=== PATIENT | female | born 1990 | race Caucasian/White ===

== ENCOUNTER 2017-08-10 17:06 | Emergency (ER) | payer OTHER ==
[~2017-08-10] VITALS: Ht 162.6 cm; Wt 85.3 kg
[~2017-08-10 17:06] MED LIST: AZITHROMYCIN 2250 MG PO; FLEXERIL PO; IBUPROFEN 800800 M1 PO; LIORESAL 10 MG10 MG PO; PHENERGAN-CODE120 ML PO; PRENATAL; PRENATAL MULTI1 EAC2 PO; ULTRAM 50MG TAB50 MG PO
[2017-08-10] MEDS ORDERED: SYNTHROID150 MCG PO (17:16)
[2017-08-10] MEDS ORDERED: ZOVIRAX TOP (17:43)
[2017-08-10] MEDS ORDERED: ACYCLOVIR 400400 MG PO (17:43)
[2017-08-10 17:52] VITALS: BP 125/88
== END 2017-08-10 17:52 | disposition home or self-care (01) ==
LOC: M.ERS 17:06
DX: B00.9 Herpesviral infection, unspecified (principal); E03.9 Hypothyroidism, unspecified; F17.210 Nicotine dependence, cigarettes, uncomplicated

== ENCOUNTER 2018-06-27 08:32 | Emergency (ER) | payer OTHER ==
[~2018-06-27] VITALS: Ht 162.6 cm; Wt 83.5 kg
[~2018-06-27 08:32] MED LIST changes: +ACYCLOVIR 400400 MG PO; +SYNTHROID150 MCG PO; +ZOVIRAX TOP
[2018-06-27 10:05] LABS: ABSOLUTE BASOPHILS 0.1 thou/uL (0.0-0.2); ABSOLUTE EOSINOPHILS 0.3 thou/uL (0.0-0.7); ABSOLUTE LYMPHOCYTES 2.8 thou/uL (0.8-5.3); ABSOLUTE MONOCYTES 0.4 thou/uL (0.0-1.2); ABSOLUTE NEUTROPHILS 3.3 thou/uL (1.6-8.1); BASOPHILS 1.2 %; HEMATOCRIT 48.4 % (37.0-47.0); LYMPHOCYTES 40.8 %; MCH 29.5 pg (26.0-34.0); MCV 89.4 fL (80.0-100.0); MONOCYTES 5.5 %; MPV 8.8 fl. (7.2-11.1); NUCLEATED RBCS 0 /100WBC; PLATELET COUNT* 298 thou/uL (150-400); POLYS 47.5 %; RBC 5.41 mil/uL (4.20-5.00); RDW-CV 13.1 % (10.5-14.5); WBC 6.9 thou/uL (4.0-11.0)
[2018-06-27 10:19] LABS: URINE BILIRUBIN NEGATIVE (Negative); URINE BLOOD NEGATIVE (Negative); URINE CLARITY CLEAR; URINE COLOR YELLOW; URINE GLUCOSE-RANDOM NEGATIVE (Negative); URINE KETONES NEGATIVE (Negative); URINE LEUKOCYTES-REFLEX TRACE (Negative); URINE NITRITE-REFLEX NEGATIVE (Negative); URINE PROTEIN NEGATIVE (Negative); URINE UROBILINOGEN 0.2 E.U./dl (0.2-1.0)
[2018-06-27 10:26] LABS: CREATININE 0.8 mg/dL (0.6-1.3); POTASSIUM 4.3 mmol/L (3.5-5.1)
[2018-06-27 10:29] LABS: BACTERIA-REFLEX 1-9 Few /HPF (None Seen); CASTS None Seen /LPF (None Seen); CRYSTALS None Seen /LPF (None Seen); MUCUS None Seen strn/LPF (None Seen); SQUAMOUS 4-10 Moderate /LPF (0-3); URINE WBC-REFLEX 0-5 Rare /HPF (0-5)
[2018-06-27 10:31] LABS: ALBUMIN 3.7 g/dL (3.4-5.0); TOTAL BILIRUBIN 0.2 mg/dL (<0.1-1.0); TOTAL PROTEIN 7.6 g/dL (6.4-8.2)
[2018-06-27 11:06] VITALS: BP 139/75
== END 2018-06-27 11:06 | disposition home or self-care (01) ==
LOC: M.ERS 08:32
PROVIDERS: Family Medicine
DX: R10.12 Left upper quadrant pain (principal); R19.7 Diarrhea, unspecified; E03.9 Hypothyroidism, unspecified; F17.210 Nicotine dependence, cigarettes, uncomplicated